=== PATIENT | male | born 1970 | race African-American/Black ===

== ENCOUNTER 2021-06-15 06:09 | Inpatient (IN) | payer OTHER ==
[2021-06-15] MEDS ORDERED: levETIRAcetam in NS 100 ML ONE (06:29)
[2021-06-15] MEDS ORDERED: Lorazepam 2 MG/ML VIAL ONE (06:32)
[2021-06-15 06:52] LABS: #Basophils 0.1 10x3/uL (0.0-0.2); #Eosinphils 0.3 10x3/uL (0.0-0.5); #Monocytes 0.6 10x3/uL (0.0-1.1); #Neutrophils 3.1 10x3/uL (1.5-8.4); %Basophils 0.9 % (0.0-2.0); %Eosinophils 4.4 % (0.0-6.0); %Lymphocytes 41.3 % (18.0-47.0); %Monocytes 8.1 % (0.0-10.0); Hemoglobin 15.8 g/dL (13.5-17.5); Mean Corpuscular HGB CONC 36.8 g/dL (32.0-36.0); Mean Corpuscular Volume 89.6 fl (81.2-95.1); Mean Platelet Volume 10.3 fl (7.4-10.4); Platelet Count 331 10x3/uL (150-450); RBC Distribution Width 13.2 % (11.5-14.5); Red Blood Cell (RBC) Count 4.79 10x6/uL (4.32-5.72); White Blood Cell (WBC) Count 6.8 10x3/uL (3.5-10.5)
[2021-06-15 07:09] LABS: INR-International Normal Ratio 1.6; Prothrombin Time 16.5 sec (9.5-12.1)
[2021-06-15 07:22] LABS: ALT (SGPT) 29 U/L (8-55); AST (SGOT) 35 U/L (5-34); Acetaminophen Less than 10.0 mcg/mL (10.0-30.0); Albumin 3.7 g/dL (3.5-5.0); Alcohol Less than 10 mg/dL (Less than 10); Alkaline Phosphatase 105 U/L (40-110); Anion Gap 18 mmol/L (10-20); BUN (Urea Nitrogen) 13 mg/dL (8.4-25.7); Bilirubin, Total 0.2 mg/dL (0.2-1.2); Calc. Creatinine Clearance 0 mL/min (70-130); Calcium 8.8 mg/dL (7.8-10.44); Carbon Dioxide 16 mmol/L (22-29); Chloride 111 mmol/L (98-107); Globulin 3.7 g/dL (2.4-3.5); Glucose 105 mg/dL (70-105); Potassium 4.2 mmol/L (3.5-5.1); Protein, Total 7.4 g/dL (6.0-8.3); Salicylate Less than 8.0 mg/dL (15.0-30.0); Sodium 141 mmol/L (136-145)
[2021-06-15 08:52] LABS: Amphetamine Not Detected (NotDetected); Barbiturates Screen Not Detected (NotDetected); Benzodiazepine Screen Detected (NotDetected); Cocaine Metabolite Screen Not Detected (NotDetected); Methadone Not Detected (NotDetected); Methamphetamine Not Detected (NotDetected); Opiate Screen Not Detected (NotDetected); Oxycodone Screen Not Detected (NotDetected); Phencyclidine (PCP) Not Detected (NotDetected); THC/Cannabinoid Screen Detected (NotDetected); Tricyclic Screen Not Detected (NotDetected)
[2021-06-15] MEDS ORDERED: Enoxaparin Sodium 80 MG/0.8 ML SYRINGE ONE (09:12)
[2021-06-15] MEDS ORDERED: Senokot S 8.6-50 MG TAB PO PRN (09:51)
[2021-06-15] MEDS ORDERED: Ondansetron PF 4 MG/2 ML Vial IVP PRN (09:51)
[2021-06-15] MEDS ORDERED: Bisacodyl 5 MG TAB PO PRN (09:51)
[2021-06-15] MEDS ORDERED: Acetaminophen 650 MG Suppository PR PRN (09:51)
[2021-06-15] MEDS ORDERED: Acetaminophen 325 MG TAB PO PRN (09:51)
[2021-06-15] MEDS ORDERED: Ondansetron ODT 4 MG TAB PO PRN (09:51)
[2021-06-15 11:17] VITALS: BMI 24.3
[2021-06-15 13:05] LABS: Alcohol Less than 10 mg/dL (Less than 10); Magnesium 1.9 mg/dL (1.6-2.6)
[2021-06-15] MEDS ORDERED: Warfarin Sodium 5 MG TAB PO SCH (17:00)
[2021-06-15 20:02] LABS: SARS-CoV-2 PCR by NAA Not Detected (NotDetected)
[2021-06-15] MEDS: Enoxaparin Sodium 80 MG/0.8 ML SYRINGE SC SCH (20:23)
[2021-06-15] MEDS: levETIRAcetam in NS 1,000 MG in Premix Bag 1 BAG IVPB SCH (20:23)
[2021-06-15] MEDS ORDERED: Atorvastatin Calcium 40 MG TAB PO SCH (21:00)
[2021-06-15] MEDS ORDERED: Enoxaparin Sodium 80 MG/0.8 ML SYRINGE SC SCH (21:00)
[2021-06-16 04:36] LABS: #Neutrophils 2.6 10x3/uL (1.5-8.4)
[2021-06-16 04:37] LABS: INR-International Normal Ratio 1.3; Prothrombin Time 14.1 sec (9.5-12.1)
[2021-06-16 04:38] LABS: #Basophils 0.1 10x3/uL (0.0-0.2); #Eosinphils 0.2 10x3/uL (0.0-0.5); #Monocytes 0.6 10x3/uL (0.0-1.1); %Eosinophils 3.1 % (0.0-6.0); %Lymphocytes 45.5 % (18.0-47.0); %Monocytes 9.1 % (0.0-10.0); Mean Corpuscular HGB CONC 36.6 g/dL (32.0-36.0); Mean Corpuscular Hemoglobin 32.2 pg (27.0-33.0); Mean Platelet Volume 10.4 fl (7.4-10.4); Platelet Count 312 10x3/uL (150-450); RBC Distribution Width 13.1 % (11.5-14.5); Red Blood Cell (RBC) Count 4.66 10x6/uL (4.32-5.72); White Blood Cell (WBC) Count 6.1 10x3/uL (3.5-10.5)
[2021-06-16 04:53] LABS: Anion Gap 11 mmol/L (10-20); BUN (Urea Nitrogen) 12 mg/dL (8.4-25.7); Calc. Creatinine Clearance 86 mL/min (70-130); Calcium 8.6 mg/dL (7.8-10.44); Carbon Dioxide 23 mmol/L (22-29); Cardiac Risk 4.6 (Less than 4.5); Chloride 110 mmol/L (98-107); Cholesterol 158 mg/dl (< 200 Desired); Glucose 81 mg/dL (70-105); HDL Cholesterol 34 mg/dL (>60 Neg Risk); LDL Cholesterol, Calculated 109 mg/dL; Potassium 4.2 mmol/L (3.5-5.1); Sodium 140 mmol/L (136-145); Triglycerides 77 mg/dL (Less than 150)
[2021-06-16] MEDS: Enoxaparin Sodium 80 MG/0.8 ML SYRINGE SC SCH (08:51)
[2021-06-16] MEDS: levETIRAcetam in NS 1,000 MG in Premix Bag 1 BAG IVPB SCH (08:52)
[2021-06-16] MEDS ORDERED: Non-Formulary Medication 1 EACH (Bictegrav/Emtricit/Tenofov Ala [Biktarvy 50-200-25 Mg Tab PO SCH (09:00)
[2021-06-16] MEDS ORDERED: Aspirin 81 mg Enteric Coated Tablet PO SCH (09:00)
[2021-06-16 12:19] VITALS: BP 140/80; TEMP 97.7
[2021-06-16 12:42] LABS: Hemoglobin A1c 4.9 % (4.0-6.0)
== END 2021-06-16 16:30 | disposition home or self-care (01) | DRG 64 ==
LOC: CSHERS 06:09 → CSHTELE 10:12
PROVIDERS: ADMIT Emergency Medicine; ATTEND Internal Medicine
DX: I63.89 Other cerebral infarction (principal); G93.6 Cerebral edema; F17.210 Nicotine dependence, cigarettes, uncomplicated; F12.10 Cannabis abuse, uncomplicated; G40.909 Epilepsy, unspecified, not intractable, without status epilepticus; Z21 Asymptomatic human immunodeficiency virus [HIV] infection status; R29.700 NIHSS score 0; F10.129 Alcohol abuse with intoxication, unspecified; D72.829 Elevated white blood cell count, unspecified; Z20.822 Contact with and (suspected) exposure to COVID-19; Z95.4 Presence of other heart-valve replacement; Z79.899 Other long term (current) drug therapy; Z79.01 Long term (current) use of anticoagulants; Z79.1 Long term (current) use of non-steroidal anti-inflammatories (NSAID)
CPT/HCPCS: 36415; 70450; 70551; 80048; 80053; 80061; 80177; 80306; 80307; 82607; 82746; 83036; 83735; 84443; 85025; 85610; 93005; 93010; 93306; 93880; 94760; J1650; J1953; J2060; U0003; U0005

== ENCOUNTER 2021-09-24 11:50 | Emergency (ER) | payer OTHER ==
[2021-09-24] MEDS ORDERED: levETIRAcetam in NS 100 ML ONE (12:02)
== END 2021-09-24 13:26 | disposition home or self-care (01) ==
LOC: CSHERS 11:50
DX: G40.909 Epilepsy, unspecified, not intractable, without status epilepticus (principal); F17.210 Nicotine dependence, cigarettes, uncomplicated; Z79.899 Other long term (current) drug therapy
CPT/HCPCS: 70450; 96374; J1953